=== PATIENT | female | born 1985 | race Caucasian/White ===

== ENCOUNTER 2020-10-16 15:53 | Inpatient (IN) | payer BC ==
--- NOTE | 2020-10-16 16:04 | PCM.LDHP ---
L&D History of Present Illness - General Date of Service: 10/16/20 Admit Problem/Dx: Admission Diagnosis/Problem Admission Diagnosis/Problem 10/16/20 15:55 María Sams ( Katie) is a 35-year-old 4 para 2-0-1-2 female who was seen in clinic today at 38-2/7 weeks gestational age with an HENRY of 10/28/2020 with complaints of contractions that are been present since this morning. Source of Information: Patient History Limitations: Reports: No Limitations - History of Present Illness Introduction:: María Sams ( Katie) is a 35-year-old 4 para 2-0-1-2 female who was seen in clinic today at 38-2/7 weeks gestational age with an HENRY of 10/28/2020 with complaints of contractions that are been present since this morning. Repo rts contractions to be every 3 to 5 minutes, pain intensity of 6 on a scale of 10 progressive in nature as it relates to frequency and intensity. She is sent to labor and delivery for repeat section. She has had 2 previous sections. She desires repeat section. The procedure, risk, benefits, alternatives of care including allowing for trial of labor after section for vaginal after section are discussed in detail. She appears understand and wished to proceed with section. Risk factors for the include history of x2, history of macrosomic infant with previous at 9 pounds 6 ounces. During history: Patient had menarche at approximately age 13. Cycles every 30 days. Last menstrual period started on 01/22/2020. This period is regular and certain. She has had 3 ultrasounds since that time with first 2 being consistent with dates. Patient's previous to deliveries were sections as follows: 1. Male infant born 01/24/2016 at 39-1/7 weeks gestational age12 hours of labor8 [facility] [place]. Child's name is George 2. Male infant born 09/03/2017 at 39-1/7 weeks gestational age after 12 hours labor9 pounds 6 ounces. [facility] [place] course: Patient was first seen for this at 11 weeks and 3 days. She was seen on a very regular basis. Weight gain was from 161 pounds up to 188 pounds for a 27 pound increase. Vital signs remained stable and blood pressures were normal throughout the course. Fundal height growth was somewhat ahead of schedule for the last several weeks consistent with a large for gestational age baby. She is group B strep positive. She has had some anxiety during the course of . She declines prequel genetic testing. And reports her depression screen score on 06/19/2020 is 1/30. She plans to breast-feed. Patient had her Tdap shot on 09/25/2020. She is rubella immune. Laboratory testing shows blood to be O+ with negative antibody screen. Hemoglobin on first annual visit is 12.4 g/dL. Platelets are 247,000. Pap s mear was negative. Rubella titer showed immunity. RPR is nonreactive. Urine culture showed probable strep after 2 days. Group B strep B strep screen was positive. Hepatitis B surface and HIV tests were negative. GC and Chlamydia tests were negative. Hepatitis C antibody was negative. Second trimester labs showed hemoglobin of 11.4 g/dL at which time patient was started on ferrous sulfate 3 and 25 mg p.o. daily along with her vitamins. Her platelet count is 220,000. Diabetic screen test is normal at 118. RPR repeated again on 07/24/2020 was nonreactive. Allergies: None Medications: 1. vitamins 1 p.o. daily 2. Colace 1 p.o. daily as needed for constipation Past medical history: 1. Patient had neck fracture at age 18. 2. Miscarriage October 2019. Past surgical history: x2 Family history: Mother is alive and well at age 69. Maternal grandfather is at age 82. Maternal grandfather is at age 78 from Alzheimer's disease. Father is alive with high cholesterol at age 73. Paternal grandfather is at age 54 from stomach cancer. Paternal grandmother is at age 86. 2 brothers alive and well. 1 sister alive well. Maternal uncle with colon cancer x2. No family history of bleeding, clotting disorders, anesthesia related problems or related problems. Social history: Patient is . is Paul. [place], [place]. She does not use any significance alcohol, drugs or tobacco. Review of systems: In general patient planes of contractions as described above. No leakage of fluid, bleeding. Baby has been active. Skin: Negative Lungs: No infectious symptoms or shortness of breath Cardiovascular: No chest pain or exercise intolerance Breasts: No lumps, changes in size, pain, dimpling, discharge or axillary or supraclavicular concerns. GI: Negative : As per HPI. Patient also has body habitus changes secondary to . Musculoskeletal: Negative Neurological: Negative In general the patient is well-developed, well-nourished, pleasant female of stated age in minimal distress secondary to contractions. Weight on evaluation is 188 with a pregravid weight of 161. Height is 5 feet 6 inches. Prepregnancy body mass index is 23.4. heart rate is 160. Blood pressure is 112/68. Skin is warm dry without lesions. HEENT, neck and back within normal limits. Lungs are clear with good breath sounds in all lung esteban. Cardiovascular exam shows regular and rhythm without murmurs. Breast exam done at first annual visit is not repeated today as it was normal at that time. Abdomen is gravid with fundal height of 40 cm. Baby in vertex presentation. Genital per digital exam shows cervix to be closed/thick/firm/posterior/-3. Vertex presentation confirmed Extremities and neurological exam are grossly within normal limits. - Related Data Allergies/Adverse Reactions: Allergies Allergy/AdvReac Type Severity Reaction Status Date / Time No Known Allergies Allergy Verified 01/23/16 13:45 Home Medications: Home Meds Docusate Sodium [Colace] 100 mg PO DAILY 01/23/16 [History] Pnv No.95/Ferrous Fum/Folic AC [ Vitamins Tablet] 1 tab PO DAILY 01/23/16 [History] Ferrous Sulfate [Iron] 325 mg PO DAILY 09/11/18 [History] Acetaminophen/oxyCODONE [Percocet 325-5 MG] 1 - 2 tab PO Q6H PRN #30 tablet 09/13/18 [Rx] Docusate Sodium [Colace] 100 mg PO Q12H PRN cap 09/13/18 [Rx] Ibuprofen [Motrin] 600 mg PO Q6H PRN tablet 09/13/18 [Rx] Lanolin [Lansinoh HPA] 1 applic TOP ASDIRECTED PRN tube 09/13/18 [Rx] Simethicone 80 mg PO PCBED tab.chew 09/13/18 [Rx] Past Medical History HEENT History: Reports: Other (See Below) (Had history of broken neck at age 18) Cardiovascular History: Reports: None Respiratory History: Reports: None Gastrointestinal History: Reports: None [address] [address] MAN History: Reports: Psychiatric History: Reports: Depression - Past Surgical History HEENT Surgical History: Reports: Oral Surgery GI Surgical History: Reports: Colonoscopy Other GI Surgeries/Procedures: 2011 Female Surgical History: Reports: Section Social & Family History - Family History Family Medical History: No Pertinent Family History Psychiatric: Reports: Other (See Below) - Caffeine Use Caffeine Use: Reports: None H&P Review of Systems - Review of Systems: Review Of Systems: See Below L&D Exam - Exam Exam: See Below - Problem List (1) 38 weeks gestation of SNOMED Code(s): 35713608 ICD Code: Z3A.38 - 38 WEEKS GESTATION OF Status: Acute Current Visit: Yes (2) Active labor SNOMED Code(s): 926998207 ICD Code: [id number] - Status: Acute Current Visit: Yes (3) Previous section SNOMED Code(s): 569049725 ICD Code: Z98.891 - HISTORY OF UTERINE SCAR FROM PREVIOUS SURGERY Status: Acute Current Visit: Yes Problem List Initiated/Reviewed/Updated: Yes Assessment/Plan Comment:: 1.María Sams ( Katie) is a 35-year-old 4 para 2-0-1-2 female who was seen in clinic today at 38-2/7 weeks gestational age with an HENRY of 10/28/2020 with complaints of contractions that are been present since this morning. Reports contractions to be every 3 to 5 minutes, pain intensity of 6 on a scale of 10 progressive in nature as it relates to frequency and intensity. 2. Risk factors for the include history of previous x2, active labor, group B strep positive status, history of macrosomic infant with previous at 9 pounds 6 ounces 3. Reassuring heart tones per nonstress test today Plan: 1. Repeat lower in segment transverse sections with Franciscan incision under spinal block. Procedure, risk, benefits, alternatives of care discussed with patient. She appears understand and wishes to proceed. Consent is signed. 2. Group B strep positivewill inform peds and will give prophylactic antibiotics with Ancef per protocol. 3. DVT prophylaxis with SCDs 4. Ancef 2 g IV preop for infection prophylaxis 5. Routine preoperative evaluation consist of type and screen, CBC, COVID-19 testing, per protocol.
[2020-10-16] MEDS ORDERED: ceFAZolin 2 GM in Premix Bag 1 BAG IV ONE (16:22)
[2020-10-16] MEDS ORDERED: Metoclopramide 10 MG/2 ML SDV IVPUSH ONE (16:22)
[2020-10-16] MEDS ORDERED: Citric Acid/Sodium Citrate Solution 30 ML Cup PO ONE (16:22)
[2020-10-16] MEDS ORDERED: Sodium Chloride 0.9% 10 ML Syringe FLUSH PRN (16:22)
[2020-10-16] MEDS ORDERED: Lactated Ringers 1,000 ML IV SCH ×2 (16:30)
[2020-10-16] MEDS ORDERED: Oxytocin/Lactated Ringers 20 UNIT/1,000 ML BAG IV SCH (16:30)
[2020-10-16] MEDS ORDERED: Phenylephrine 1% 10 MG/ML SDV ONE (17:10)
[2020-10-16] MEDS ORDERED: ceFAZolin 1 GM Vial ONE (17:10)
[2020-10-16] MEDS ORDERED: Morphine PF 10 MG/10 ML SDV ONE (17:10)
[2020-10-16] MEDS ORDERED: Lactated Ringers 1,000 ML ONE ×2 (17:14→18:48)
[2020-10-16] MEDS: Bupivacaine 0.5% 30 ML SDV ONE ×2 (17:14→18:16)
--- NOTE | 2020-10-16 17:29 | PCM.PREANE ---
Preanesthetic Assessment - Procedure Proposed Procedure: - Anesthesia/Transfusion/Family Hx Anesthesia History: Prior Anesthesia Without Reaction Family History of Anesthesia Reaction: No Transfusion History: No Prior Transfusion(s) Type of Transfusion Reactions: Reports: Unknown - Review of Systems General: No Symptoms Pulmonary: No Symptoms Cardiovascular: No Symptoms, Dyspnea on Exertion Gastrointestinal: Abdominal Pain (labor) Neurological: No Symptoms Other: Reports: None - Physical Assessment NPO Status Date: 10/16/20 NPO Status Time: 11:30 Vital Signs: Last Vital Signs Temp 36.8 C 10/16/20 16:07 Pulse 88 10/16/20 16:07 Resp 14 10/16/20 16:07 BP 138/72 10/16/20 16:07 Pulse Ox 98 10/16/20 16:07 Height: 1.68 m Weight: 81.193 kg ASA Class: 2 Mental Status: Alert & Oriented x3 Airway Class: Mallampati = 1 Dentition: Reports: Normal Dentition Thyro-Mental Finger Breadths: 3 Mouth Opening Finger Breadths: 3 ROM/Head Extension: Full Lungs: Clear to Auscultation, Normal Respiratory Effort Cardiovascular: Regular Rate, Regular Rhythm - Allergies Allergies/Adverse Reactions: Allergies Allergy/AdvReac Type Severity Reaction Status Date / Time No Known Allergies Allergy Verified 10/16/20 17:13 - Blood Blood Available: Yes Product(s) Available: PRBC - Anesthesia Plan Pre-Op Medication Ordered: None - Acknowledgements Anesthesia Type Planned: Spinal Pt an Appropriate Candidate for the Planned Anesthesia: Yes Alternatives and Risks of Anesthesia Discussed w Pt/Guardian: Yes Pt/Guardian Understands and Agrees with Anesthesia Plan: Yes PreAnesthesia Questionnaire HEENT History: Reports: Other (See Below) Cardiovascular History: Reports: None Respiratory History: Reports: None Gastrointestinal History: Reports: None, GERD SAP GATHERER History: Reports: Psychiatric History: Reports: Anxiety, Depression - Past Surgical History HEENT Surgical History: Reports: Oral Surgery GI Surgical History: Reports: Colonoscopy Other GI Surgeries/Procedures: 2011 Female Surgical History: Reports: Section - SUBSTANCE USE Tobacco Use Status *Q: Never Tobacco User Second Hand Smoke Exposure: No Recreational Drug Use History: No - HOME MEDS Home Medications: Home Meds Pnv No.95/Ferrous Fum/Folic AC [ Vitamins Tablet] 1 tab PO DAILY 01/23/16 [History] Ferrous Sulfate [Iron] 325 mg PO DAILY 09/11/18 [History] Docusate Sodium [Colace] 100 mg PO Q12H PRN cap 09/13/18 [Rx] - CURRENT (IN HOUSE) MEDS Current Meds: Current Medications Lactated Ringer's (Ringers, Lactated) 1,000 mls @ 100 mls/hr IV ASDIRECTED GALLO Last Admin: 10/16/20 16:43 Dose: 100 mls/hr Documented by: Oxytocin/Lactated Ringer's (Pitocin In Lr 20 Units/1,000 Ml) 20 unit in 1,000 mls @ 500 mls/hr IV ASDIRECTED GALLO Lactated Ringer's (Ringers, Lactated) 1,000 mls @ 125 mls/hr IV ASDIRECTED GALLO Sodium Chloride (Sodium Chloride 0.9% 10 Ml Syringe) 10 ml FLUSH ASDIRECTED PRN PRN Reason: Keep Vein Open Discontinued Medications Bupivacaine HCl (Bupivacaine 0.5% 30 Ml Sdv) Confirm Administered Dose 30 ml .ROUTE .STK-MED ONE Stop: 10/16/20 16:45 Last Admin: 10/16/20 17:14 Dose: 20 ml Documented by: Cefazolin Sodium (Cefazolin 1 Gm Vial) Confirm Administered Dose 2 gm .ROUTE .STK-MED ONE Stop: 10/16/20 17:11 Citric Acid/Sodium Citrate (Citric Acid/Sodium Citrate Solution 30 Ml Cup) 30 ml PO ONETIME ONE Stop: 10/16/20 16:23 Last Admin: 10/16/20 17:19 Dose: 30 ml Documented by: Cefazolin Sodium/Dextrose 2 gm (/ Premix) 50 mls @ 100 mls/hr IV ONETIME ONE Stop: 10/16/20 16:51 Lactated Ringer's (Ringers, Lactated) Confirm Administered Dose 1,000 mls @ as directed .ROUTE .STK-MED ONE Stop: 10/16/20 17:15 Metoclopramide HCl (Metoclopramide 10 Mg/2 Ml Sdv) 10 mg IVPUSH ONETIME ONE Stop: 10/16/20 16:23 Last Admin: 10/16/20 17:19 Dose: 10 mg Documented by: Morphine Sulfate (Morphine Pf 10 Mg/10 Ml Sdv) Confirm Administered Dose 10 mg .ROUTE .STK-MED ONE Stop: 10/16/20 17:11 Phenylephrine HCl (Phenylephrine 1% 10 Mg/Ml Sdv) Confirm Administered Dose 10 mg .ROUTE .[facility] ONE Stop: 10/16/20 17:11
[2020-10-16] MEDS ORDERED: Bupivacaine 0.5% 30 ML SDV ONE (17:42)
[2020-10-16] MEDS ORDERED: Ketorolac 30 MG/ML SDV ONE (18:07)
[2020-10-16] MEDS ORDERED: Oxytocin 10 Units/1 ML SDV ONE (18:07)
--- NOTE | 2020-10-16 19:05 | PCM.POSTAN ---
POST ANESTHESIA ASSESSMENT - MENTAL STATUS Mental Status: Alert, Oriented - VITAL SIGNS Vital Signs: Last Vital Signs Temp 36.8 C 10/16/20 16:07 Pulse 88 10/16/20 16:07 Resp 14 10/16/20 16:07 BP 138/72 10/16/20 16:07 Pulse Ox 98 10/16/20 16:07 - RESPIRATORY Respiratory Status: Respiratory Rate WNL, Airway Patent, O2 Saturation Stable, Supplemental Oxygen - CARDIOVASCULAR CV Status: Pulse Rate WNL, Blood Pressure Stable - GASTROINTESTINAL GI Status: No Symptoms - PAIN Pain Score: 0 - POST OP HYDRATION Hydration Status: Adequate & Stable - OBSERVATIONS Free Text/Narrative:: no anesthesia complications noted
[2020-10-16] MEDS ORDERED: Ondansetron 4 MG/2 ML SDV IVPUSH PRN (21:03)
--- NOTE | 2020-10-16 21:09 | PCM.OPNOTE ---
- General Post-Op/Procedure Note Date of Surgery/Procedure: 10/16/20 Operative Procedure(s): Repeat lower uterine segment transverse section through Pfannenstiel skin incision Findings: Moderate scarring noted in the anterior abdominal wall in the area of her old Pfannenstiel scar. Uterus tubes and ovaries consistent with normal term . Baby in vertex presentation. Amniotic fluid abundant and clear. It appeared normal Pre Op Diagnosis: 1. 38-2/7-week intrauterine , active labor. 2. History of previous section affecting . 3. Group B strep positive status Post-Op Diagnosis: Same with delivery of a 8 pound 10 ounces (3910 g) male with Apgars of 8 and 9 Anesthesia Technique: Spinal Other Anesthesia Type: Marcaine 0.5% - 20 mLlocal Primary Surgeon: Trevor Nelson Secondary Surgeon: Rashawn Urrutia Anesthesia Provider: Chris Rodrigues Bait Packer: Jessica Johnson Reason Bait Packer Was Necessary: Retraction, assistance, patient safety, quality of care. Fluid Replacement, Intraop: 2,900 Output, Urine Amount: 125 EBL in mLs: 600 Drain/Tube Comments:: Indwelling bladder catheter Complications: None Condition: Good Free Text/Narrative:: Intake & Output 10/16/20 10/16/20 10/16/20 06:59 14:59 22:59 Intake Total 300 Output Total 428 Balance -128 Surgery duration: 35 minutes Surgery duration: Procedure: The patient is appropriately consented. Patient was transferred to the room and placed in a sitting position. Spinal anesthesia was administered. After confirmation of adequate anesthesia patient was placed in a supine position with a wedge under her right side to facilitate left lateral positioning. The patient was prepped and draped in usual fashion after Frias catheter was already placed . The anesthetic was checked and found to be adequate. 20 mL of Marcaine 0.5% was injected locally in the Pfannenstiel incision site. The Pfannenstiel skin incision was then made and carried down through skin, subcutaneous and fascial layers. The fascia was then undermined superiorly and inferiorly to allow for adequate operating room. The recti muscles midline and preperitoneal fat was bluntly dissected. Peritoneal cavity was entered longitudinally. The vesicouterine peritoneum was then incised transversely and bladder flap was developed. Myometrium was incised transversely to the level of the amniotic sac. This incision was extended bilaterally in a blunt fashion. The amniotic sac was then ruptured resulting in clear amniotic fluid. A hand is placed in the low uterine segment and the baby's head was brought forth through the incision. The baby was completely delivered using fundal pressure in a routine fashion. The nose and mouth were bulb suctioned. Baby's cord was clamped x2 cut and baby was handed off to attending day care home mother Dr Lopez. Placenta was expressed after cord blood was obtained. Uterus was then exteriorized to allow for easier closure. The cervix was assessed and found to be dilated adequately to allow egress of blood. The uterus was closed in 2 layers. The first layer a running locked suture of 0 Monocryl, the second layer a running locked vertical mattress suture of 0 Monocryl. Hemostasis confirmed at this time. Sponge instrument needle counts are correct. The uterus was returned to the abdominal cavity and lateral gutters were cleared of blood. Once again sponge needle counts are correct. The anterior abdominal wall was closed with a #1 PDS suture from angle to angle. The subcutaneous area was found to be free of any bleeders. interrupted sutures of 3-0 Monocryl were used to reapproximate the subcutaneous layer.Skin was closed with a running subcuticular stitch of 3-0 Monocryl in a vertical mattress suture fashion using a Dale needle. Prineo mesh/glue was then applied to further approximate the incision. It should be noted that patient received 2 g of Ancef preoperatively for infection prophylaxis and had Pitocin infused after delivery of the placenta to facilitate uterine contraction. She also had sequential compression stockings in place for DVT prophylaxis. Patient was discharged from the operating room in satisfactory condition.
[2020-10-16] MEDS ORDERED: Acetaminophen/oxyCODONE 325-5 MG Tab PO PRN (21:33)
[2020-10-16] MEDS ORDERED: Dextrose 5%-Lactated Ringers 1,000 ML IV SCH (21:33)
[2020-10-16] MEDS ORDERED: Naloxone 0.4 MG/ML SDV IVPUSH PRN (21:33)
[2020-10-16] MEDS ORDERED: ePHEDrine 50 MG/ML SDV IVPUSH PRN (21:33)
[2020-10-16] MEDS ORDERED: diphenhydrAMINE 50 MG/ML SDV IVPUSH PRN (21:33)
[2020-10-16] MEDS: Ibuprofen 800 MG Tab PO SCH (22:00)
[2020-10-16] MEDS: Simethicone 80 MG Tab.Chew PO SCH (22:00)
[2020-10-16] MEDS: Acetaminophen/oxyCODONE 325-5 MG Tab PO PRN (22:01)
[2020-10-17] MEDS: Ibuprofen 800 MG Tab PO SCH ×3 (05:48→21:04)
--- NOTE | 2020-10-17 07:59 | PCM48HPAN ---
Post Anesthesia Note - EVALUATION WITHIN 48HRS OF ANESTHETIC Vital Signs in Normal Range: Yes Patient Participated in Evaluation: Yes Respiratory Function Stable: Yes Airway Patent: Yes Cardiovascular Function Stable: Yes Hydration Status Stable: Yes Pain Control Satisfactory: Yes Nausea and Vomiting Control Satisfactory: Yes Mental Status Recovered: Yes Vital Signs: Last Vital Signs Temp 97.9 F 10/17/20 04:34 Pulse 66 10/17/20 04:34 Resp 16 10/17/20 06:54 BP 107/50 L 10/17/20 04:34 Pulse Ox 98 10/17/20 06:54 - COMMENTS/OBSERVATIONS Free Text/Narrative:: sitting up in bed with no complaints
[2020-10-17] MEDS: Prenatal Multivitamin with Calcium/Folic Acid/Iron Tab PO SCH (08:58)
[2020-10-17] MEDS: Simethicone 80 MG Tab.Chew PO SCH ×4 (08:58→21:04)
[2020-10-17] MEDS: Acetaminophen/oxyCODONE 325-5 MG Tab PO PRN ×2 (10:25→17:57)
--- NOTE | 2020-10-17 11:04 | PCM.SN.2 ---
- Free Text/Narrative Note: note/postoperative day #1: Patient is doing well in the period. Minimal lochia, voiding well, ambulated without problems. Nursing without concerns. Pain control is good. Patient is afebrile, vital signs are stable. Nursing is going well. Abdomen is flat, soft, uterus is below the umbilicus and is firm and nontender. Incision appears to be dry and intact. Prineo mesh in place. Legs are nontender. Assessment: postoperative day #1-recovery going well. Plan: Routine /postoperative care. Will discontinue IV when tolerating fluids well. Discontinue SCDs and indwelling bladder catheter when ambulating well. Patient may shower. Patient be discharged home within the next 24-48 hours.
[2020-10-17] MEDS: Docusate Sodium 100 MG Cap PO PRN (17:57)
[2020-10-18] MEDS: Acetaminophen/oxyCODONE 325-5 MG Tab PO PRN (03:19)
[2020-10-18] MEDS: Docusate Sodium 100 MG Cap PO PRN (05:40)
[2020-10-18] MEDS: Ibuprofen 800 MG Tab PO SCH (05:40)
--- NOTE | 2020-10-18 09:58 | PCM.SN.2 ---
- Free Text/Narrative Note: Post Operative Progress Note POD #2 Subjective: Doing well overall. Ambulating without difficulty. Lochia minimal. Voiding without difficulty. Passing flatus but has not had a bowel movement. She is using Colace for a stool softener. Tolerating regular diet without nausea or vomiting. Pain controlled with oral medications. Breast-feeding with formula supplementation with minimal difficulty. Objective: Vitals: Vital Signs - 24 hr 10/17/20 10/17/20 10/17/20 12:14 12:15 12:57 Temperature 36.4 C Pulse, 66 66 Peripheral Respiratory 16 16 Rate Blood Pressure 99/56 L O2 Sat by Pulse 99 100 Oximetry 10/17/20 10/17/20 10/17/20 14:00 15:00 16:21 Temperature 36.7 C Pulse, 75 Peripheral Respiratory 16 15 Rate Blood Pressure 104/65 O2 Sat by Pulse 98 Oximetry 10/17/20 10/17/20 10/18/20 21:01 21:03 03:16 Temperature 36.6 C 36.6 C 36.5 C Pulse, 76 72 Peripheral Respiratory 14 14 14 Rate Blood Pressure 97/60 97/60 104/53 L O2 Sat by Pulse 97 95 Oximetry Physical Exam General: Alert and oriented, no acute distress Lungs: Clear to auscultation bilaterally Heart: Regular rate and rhythm Abdomen: Soft, minimal appropriate tenderness, non-distended, fundus midline, nontender and at the umbilicus Incision: Clean, dry and intact, no erythema, bleeding or drainage with Prineo dressing in place Extremities: No edema in bilateral lower extremities, no calf tenderness georgi aterally ASSESSMENT: 35-year-old female -0-1-3 s/p repeat section POD #2 for history of section, complicated by asymptomatic COVID-19 infection and history of with macrosomia PLAN: Doing well Breast-feeding with formula supplementation with minimal difficulty. Assist as needed Incision healing well. Continue to keep clean and dry. Lochia minimal. Continue to monitor for appropriate lochia. Continue routine post-operative care Patient is asymptomatic from COVID-19 infection. No shortness of breath, coughing, fevers, wheezing or other issues. Patient to monitor closely after discharge for worsening of her symptoms Discharge home today Rashawn Urrutia MD 9:57 AM 10/18/2020
--- NOTE | 2020-10-18 10:06 | PCM.DCSUM1 ---
Discharge Summary - Hospital Course Free Text/Narrative:: Procedure: The patient is appropriately consented. Patient was transferred to the room and placed in a sitting position. Spinal anesthesia was administered. After confirmation of adequate anesthesia patient was placed in a supine position with a wedge under her right side to facilitate left lateral positioning. The patient was prepped and draped in usual fashion after Frias catheter was already placed . The anesthetic was checked and found to be adequate. 20 mL of Marcaine 0.5% was injected locally in the Pfannenstiel incision site. The Pfannenstiel skin incision was then made and carried down through skin, subcutaneous and fascial layers. The fascia was then undermined superiorly and inferiorly to allow for adequate operating room. The recti muscles midline and preperitoneal fat was bluntly dissected. Peritoneal cavity was entered longitudinally. The vesicouterine peritoneum was then incised transversely and bladder flap was developed. Myometrium was incised transversely to the level of the amniotic sac. This incision was extended bilaterally in a blunt fashion. The amniotic sac was then ruptured resulting in clear amniotic fluid. A hand is placed in the low uterine segment and the baby's head was brought forth through the incision. The baby was completely delivered using fundal pressure in a routine fashion. The nose and mouth were bulb suctioned. Baby's cord was clamped x2 cut and baby was handed off to attending motor installer Dr Lopez. Placenta was expressed after cord blood was obtained. Uterus was then exteriorized to allow for easier closure. The cervix was assessed and found to be dilated adequately to allow egress of blood. The uterus was closed in 2 layers. The first layer a running locked suture of 0 Monocryl, the second layer a running locked vertical mattress suture of 0 Monocryl. Hemostasis confirmed at this time. Sponge instrument needle counts are correct. The uterus was returned to the abdominal cavity and lateral gutters were cleared of blood. Once again sponge needle counts are correct. The anterior abdominal wall was closed with a #1 PDS suture from angle to angle. The subcutaneous area was found to be free of any bleeders. interrupted sutures of 3-0 Monocryl were used to reapproximate the subcutaneous layer.Skin was closed with a running subcuticular stitch of 3-0 Monocryl in a vertical mattress suture fashion using a Dale needle. Prineo mesh/glue was then applied to further approximate the incision. It should be noted that patient received 2 g of Ancef preoperatively for infection prophylaxis and had Pitocin infused after delivery of the placenta to facilitate uterine contraction. She also had sequential compression stockings in place for DVT prophylaxis. Patient was discharged from the operating room in satisfactory condition. Diagnosis: Stroke: No - Discharge Data Discharge Date: 10/18/20 Discharge Disposition: Home, Self-Care 01 Condition: Good - Referral to Home Health Primary Care Physician: Trevor Nelson MD - Discharge Diagnosis/Problem(s) (1) Previous section SNOMED Code(s): 222931204 ICD Code: Z98.891 - HISTORY OF UTERINE SCAR FROM PREVIOUS SURGERY Status: Acute Current Visit: Yes (2) 39 weeks gestation of SNOMED Code(s): 38145506 ICD Code: Z3A.39 - 39 WEEKS GESTATION OF Status: Acute Current Visit: No (3) S/P section SNOMED Code(s): 748854385, 959618150 ICD Code: Z98.891 - HISTORY OF UTERINE SCAR FROM PREVIOUS SURGERY Status: Acute Current Visit: No - Patient Summary/Data Operative Procedure(s) Performed: Repeat lower uterine segment transverse section through Pfannenstiel skin incision Complications: Asymptomatic COVID-19 infection found on routine testing Consults: None Hospital Course: María Quiroz (Katie) was admitted for unscheduled section in the setting of labor with history of section. Prior to the section she was tested for COVID-19 and was found to be positive. Patient was asymptomatic from this infection she was taken back to the OR and given spinal injection for anesthesia. She was given Ancef 2 g IV for antibiotic prophylaxis. She was prepped and draped in the normal fashion. On 10/16/2020 she had a normal repeat delivery of a live male at 18:18. Apgars of 8 and 9. Weight of 3910 g (8 pounds 9.9 ounces). She was closed in a normal fashion. There were no other complications with the procedure. Please see the operative report for full details. Her post operative course was uneventful. Her pain was well controlled and she had minimal lochia. She was ambulating, tolerating a regular diet and voiding normally. She was passing flatus and has not had a bowel movement. She was breast feeding with formula supplementation with minimal difficulty. She was afebrile and her hematocrit was 30.1 on POD #1. She desired to be discharged home on the morning of POD #2. Her blood type is O+. Patient was asymptomatic from COVID-19 infection throughout her hospitalization for the section. - Patient Instructions Diet: Regular Diet as Tolerated Activity: Apply Ice, As Tolerated Activity, Other: Nothing in the vagina for 6 Driving: Do Not Drive (While taking narcotic medications or having significant pain) Wound/Incision Care: Keep Operative Site/Wound Site Clean and Dry Notify Provider of: Fever, Increased Pain, Swelling and Redness, Drainage, Nausea and/or Vomiting Other/Special Instructions: Please contact your physician's office if you note any bleeding or pus coming from the abdominal incision. Please contact your physician's office if you have heavy vaginal bleeding enough to soak a pad in less than an hour for several hours. Monitor for any signs of an infection in the breasts with severe pain or redness of the breast. You should isolate upon the release from the hospital. Contact your complex case manager from the [facility] after your discharge to discuss your continued isolation. If you are unsure if you have a complex case manager, or have any other questions, please follow up with the [facility] hotline at where they will be able to provide you the correct information for your release. - Discharge Plan *PRESCRIPTION DRUG MONITORING PROGRAM REVIEWED*: Yes *COPY OF PRESCRIPTION DRUG MONITORING REPORT IN PATIENT SKYLAR: No Prescriptions/Med Rec: Acetaminophen/oxyCODONE [Percocet 325-5 MG] 1 - 2 tab PO Q4H PRN #30 tablet PRN Reason: Pain Home Medications: Home Meds Pnv No.95/Ferrous Fum/Folic AC [ Vitamins Tablet] 1 tab PO DAILY 01/22/ [History] Ferrous Sulfate [Iron] 325 mg PO DAILY 09/11/18 [History] Docusate Sodium [Colace] 100 mg PO Q12H PRN cap 09/13/18 [Rx] Acetaminophen/oxyCODONE [Percocet 325-5 MG] 1 - 2 tab PO Q4H PRN #30 tablet 10/18/20 [Rx] Ibuprofen [Motrin] 800 mg PO Q8H PRN tablet 10/18/20 [Rx] Simethicone 160 mg PO QID tab.chew 10/18/20 [Rx] Patient Handouts: COVID-19: Keep Your Baby Healthy and Safe - [facility] (03/11/2020), COVID-19: How to Protect Yourself and Others - [facility], Care After Delivery Referrals: Trevor Nelson MD [Primary Care Provider] - (Follow-up in 2 weeks for routine visit or earlier as needed) - Discharge Summary/Plan Comment DC Time >30 min.: No Total # of Minutes for Discharge Time: 15 minutes - Patient Data Vitals - Most Recent: Last Vital Signs Temp 36.5 C 10/18/20 03:16 Pulse 72 10/18/20 03:16 Resp 14 10/18/20 03:16 BP 104/53 L 10/18/20 03:16 Pulse Ox 95 10/18/20 03:16 Weight - Most Recent: 81.193 kg Med Orders - Current: Current Medications Diphenhydramine HCl (Diphenhydramine 50 Mg/Ml Sdv) 25 mg IVPUSH Q6H PRN PRN Reason: Itching or Nausea Docusate Sodium (Docusate Sodium 100 Mg Cap) 100 mg PO Q12H PRN PRN Reason: Constipation Last Admin: 10/18/20 05:40 Dose: 100 mg Documented by: Ephedrine Sulfate (Ephedrine 50 Mg/Ml Sdv) 5 mg IVPUSH SEECOMMENT PRN PRN Reason: Other Ibuprofen (Ibuprofen 800 Mg Tab) 800 mg PO Q8H GALLO Last Admin: 10/18/20 05:40 Dose: 800 mg Documented by: Naloxone HCl (Naloxone 0.4 Mg/Ml Sdv) 0.1 mg IVPUSH SEECOMMENT PRN PRN Reason: Respiratory Depression Ondansetron HCl (Ondansetron 4 Mg/2 Ml Sdv) 4 mg IVPUSH Q4H PRN PRN Reason: Nausea Oxycodone/Acetaminophen (Acetaminophen/Oxycodone 325-5 Mg Tab) 1 tab PO Q4H PRN PRN Reason: Pain (moderate 4-6) Last Admin: 10/18/20 03:19 Dose: 1 tab Documented by: Oxycodone/Acetaminophen (Acetaminophen/Oxycodone 325-5 Mg Tab) 2 tab PO Q4H PRN PRN Reason: Pain (severe 7-10) Prenat Multivit/Shrimp Trawler/Iron/Folic Ac ( Multivitamin With Calcium/Folic Acid/Iron Tab) 1 each PO DAILY [facility] Last Admin: 10/17/20 08:58 Dose: 1 each Documented by: Simethicone (Simethicone 80 Mg Tab.Chew) 160 mg PO QID [facility] Last Admin: 10/17/20 21:04 Dose: 160 mg Documented by: Discontinued Medications Bupivacaine HCl (Bupivacaine 0.5% 30 Ml Sdv) Confirm Administered Dose 30 ml .ROUTE .STK-MED ONE Stop: 10/16/20 16:45 Last Admin: 10/16/20 18:16 Dose: 20 ml Documented by: Bupivacaine HCl (Bupivacaine 0.5% 30 Ml Sdv) Confirm Administered Dose 30 ml .ROUTE .STK-MED ONE Stop: 10/16/20 17:43 Cefazolin Sodium (Cefazolin 1 Gm Vial) Confirm Administered Dose 2 gm .ROUTE .STK-MED ONE Stop: 10/16/20 17:11 Citric Acid/Sodium Citrate (Citric Acid/Sodium Citrate Solution 30 Ml Cup) 30 ml PO ONETIME ONE Stop: 10/16/20 16:23 Last Admin: 10/16/20 17:19 Dose: 30 ml Documented by: Lactated Ringer's (Ringers, Lactated) 1,000 mls @ 100 mls/hr IV ASDIRECTED [facility] Last Admin: 10/16/20 16:43 Dose: 100 mls/hr Documented by: Cefazolin Sodium/Dextrose 2 gm (/ Premix) 50 mls @ 100 mls/hr IV ONETIME ONE Stop: 10/16/20 16:51 Last Admin: 10/17/20 20:17 Dose: Not Given Documented by: Oxytocin/Lactated Ringer's (Pitocin In Lr 20 Units/1,000 Ml) 20 unit in 1,000 mls @ 500 mls/hr IV ASDIRECTED [facility] Lactated Ringer's (Ringers, Lactated) 1,000 mls @ 125 mls/hr IV ASDIRECTED [facility] Lactated Ringer's (Ringers, Lactated) Confirm Administered Dose 1,000 mls @ as directed .ROUTE .STK-MED ONE Stop: 10/16/20 17:15 Lactated Ringer's (Ringers, Lactated) Confirm Administered Dose 1,000 mls @ as directed .ROUTE .STK-MED ONE Stop: 10/16/20 18:49 Dextrose/Lactated Ringer's (Dextrose 5%-Lactated Ringers) 1,000 mls @ 125 mls/hr IV ASDIRECTED GALLO Stop: 10/17/20 05:32 Last Admin: 10/17/20 01:31 Dose: 125 mls/hr Documented by: Ketorolac Tromethamine (Ketorolac 30 Mg/Ml Sdv) Confirm Administered Dose 30 mg .ROUTE .STK-MED ONE Stop: 10/16/20 18:08 Metoclopramide HCl (Metoclopramide 10 Mg/2 Ml Sdv) 10 mg IVPUSH ONETIME ONE Stop: 10/16/20 16:23 Last Admin: 10/16/20 17:19 Dose: 10 mg Documented by: Morphine Sulfate (Morphine Pf 10 Mg/10 Ml Sdv) Confirm Administered Dose 10 mg .ROUTE .STK-MED ONE Stop: 10/16/20 17:11 Oxytocin (Oxytocin 10 Units/1 Ml Sdv) Confirm Administered Dose 20 unit .ROUTE .STK-MED ONE Stop: 10/16/20 18:08 Phenylephrine HCl (Phenylephrine 1% 10 Mg/Ml Sdv) Confirm Administered Dose 10 mg .ROUTE .STK-MED ONE Stop: 10/16/20 17:11 Sodium Chloride (Sodium Chloride 0.9% 10 Ml Syringe) 10 ml FLUSH ASDIRECTED PRN PRN Reason: Keep Vein Open
[2020-10-18 12:38] VITALS: BP 112/66; PULSE 90
[2020-10-18] MEDS: Simethicone 80 MG Tab.Chew PO SCH (12:44)
[2020-10-18] MEDS: Prenatal Multivitamin with Calcium/Folic Acid/Iron Tab PO SCH (12:44)
== END 2020-10-18 11:00 | disposition home or self-care (01) | DRG 540 ==
LOC: JD.OB 15:53
PROVIDERS: ADMIT Obstetrics & Gynecology; ATTEND Obstetrics & Gynecology
PROC: 10D00Z1 Extraction of Products of Conception, Low, Open Approach (ICD-10-PCS; principal; 2020-10-16)
DX: O98.52 Other viral diseases complicating childbirth (principal); U07.1 COVID-19; O34.211 Maternal care for low transverse scar from previous cesarean delivery; O99.824 Streptococcus B carrier state complicating childbirth; Z37.0 Single live birth; Z3A.38 38 weeks gestation of pregnancy
CPT/HCPCS: 01961; 36415; 59025; 85025; 86592; 86850; 86900; 86901; A9270-GY; J0690; J1885; J2270; J2370; J2590; J2765; J3490; J7120; J7121; U0002

== ENCOUNTER 2025-01-14 09:11 | Inpatient (IN) | payer BC ==
[2025-01-14] MEDS ORDERED: Sodium Chloride 0.9% 10 ML Syringe FLUSH PRN (09:47)
[2025-01-14] MEDS: Lactated Ringers 1,000 ML IV ONE (10:05)
[2025-01-14 10:09] LABS: BASOPHILS ABSOLUTE AUTO 0.0 K/mm3 (0.0-0.2); BASOPHILS PERCENT AUTO 0.1 % (0.0-1.0); EOSINOPHILS ABSOLUTE AUTO 0.0 K/mm3 (0.0-0.4); EOSINOPHILS PERCENT AUTO 0.1 % (0.0-6.0); IMMATURE GRAN ABSOLUTE AUTO 0.03 K/mm3 (0.00-0.05); IMMATURE GRAN PERCENT AUTO 0.4 % (0.0-0.4); LYMPHOCYTES ABSOLUTE AUTO 0.6 K/mm3 (1.0-4.8); LYMPHOCYTES PERCENT AUTO 8.8 % (24.0-44.0); MEAN PLATELET VOLUME 8.7 fl (9.4-12.3); MONOCYTES ABSOLUTE AUTO 0.3 K/mm3 (0.0-0.8); MONOCYTES PERCENT AUTO 3.7 % (0.0-8.0); NEUTROPHILS ABSOLUTE AUTO 6.1 K/mm3 (1.8-7.7); NEUTROPHILS PERCENT AUTO 86.9 % (41.0-71.0); NRBC ABSOLUTE 0.00 (0.00-0.02); NRBC PERCENT 0.0 % (0.0-0.2); PLATELET COUNT,PLT 254 K/mm3 (150-400); RED BLOOD CELL COUNT 3.97 M/mm3 (4.10-5.30); WHITE BLOOD CELL COUNT,WBC 7.01 K/mm3 (3.9-11.3)
[2025-01-14 10:41] LABS: A/G RATIO 0.7 (1-2); ALANINE AMINOTRANSFERASE,ALT 33.0 U/L (14-59); ASPARTATE AMNIOTRANSFERASE,AST 30.0 U/L (15-37); BILIRUBIN TOTAL 0.3 mg/dL (0.2-1.0); BLOOD UREA NITROGEN,BUN 5.0 mg/dL (7-18); CARBON DIOXIDE,CO2 28.0 mEq/L (21-32); CHLORIDE,CL 97.0 mEq/L (98-107); CREATININE 0.8 mg/dL (0.55-1.02); EST CRCL DRUG DOSING (CG) 88.38 mL/min; ESTIMATED GFR 96.0 mL/min (>60); GLUCOSE RANDOM 105.0 mg/dL (70-99); POTASSIUM,K 3.7 mEq/L (3.5-5.1); PROTEIN TOTAL,TP 7.1 g/dl (6.4-8.2); SODIUM,NA 134.0 mEq/L (136-145)
[2025-01-14 10:44] LABS: LACTIC ACID 0.8 mmol/L (0.4-2.0)
[2025-01-14] MEDS ORDERED: Ondansetron 4 MG/2 ML SDV IVPUSH PRN (11:07)
[2025-01-14] MEDS: cefTRIAXone 1 GM in Water For Injection, Sterile 10 ML IVPUSH ONE (11:12)
[2025-01-14] MEDS ORDERED: Dextromethorphan HBr 30 MG/5 ML Susp ML PO PRN (19:14)
[2025-01-15 06:05] LABS: A/G RATIO 0.6 (1-2); ALANINE AMINOTRANSFERASE,ALT 25.0 U/L (14-59); ASPARTATE AMNIOTRANSFERASE,AST 25.0 U/L (15-37); BILIRUBIN TOTAL 0.2 mg/dL (0.2-1.0); CARBON DIOXIDE,CO2 30.0 mEq/L (21-32); CHLORIDE,CL 102.0 mEq/L (98-107); CREATININE 0.6 mg/dL (0.55-1.02); EST CRCL DRUG DOSING (CG) 117.84 mL/min; ESTIMATED GFR 117.0 mL/min (>60); GLUCOSE RANDOM 104.0 mg/dL (70-99); POTASSIUM,K 3.8 mEq/L (3.5-5.1); PROTEIN TOTAL,TP 6.2 g/dl (6.4-8.2); SODIUM,NA 138.0 mEq/L (136-145)
[2025-01-15 06:32] LABS: BLOOD UREA NITROGEN,BUN 4.0 mg/dL (7-18)
[2025-01-15] MEDS: cefTRIAXone 1 GM in Water For Injection, Sterile 10 ML IVPUSH SCH (08:34)
[2025-01-15] MEDS: guaiFENesin/Dextromethorphan 100-10 MG/5 ML Soln 5 ML Cup PO PRN (13:47)
[2025-01-15] MEDS: Dextromethorphan HBr 30 MG/5 ML Susp ML PO PRN (15:31)
[2025-01-16 10:48] VITALS: BP 89/65; PULSE 72
== END 2025-01-16 10:32 | disposition home or self-care (01) | DRG 139 ==
LOC: JD.ED 09:11 → JD.MS 10:42
PROVIDERS: ADMIT Internal Medicine; ATTEND Internal Medicine
DX: J18.9 Pneumonia, unspecified organism (principal); J96.01 Acute respiratory failure with hypoxia; E87.1 Hypo-osmolality and hyponatremia; E87.8 Other disorders of electrolyte and fluid balance, not elsewhere classified; E86.0 Dehydration; K21.9 Gastro-esophageal reflux disease without esophagitis; F41.9 Anxiety disorder, unspecified; Z79.1 Long term (current) use of non-steroidal anti-inflammatories (NSAID); Z79.2 Long term (current) use of antibiotics; Z79.899 Other long term (current) drug therapy; Z98.890 Other specified postprocedural states
CPT/HCPCS: 36415; 71046; 71046-26; 80053; 83605; 84703; 85025; 86140; 87040; 94640; 94668; 94761; 96360; 99232; 99239; 99285; 99285-25; A9270-GY; J0456; J0696; J1650; J7050; J7120